=== PATIENT | male | born 1955 | race Caucasian/White ===

== ENCOUNTER 2020-04-15 10:08 | Inpatient (IN) ==
[2020-04-15] MEDS ORDERED: cefTRIAXone 1,000 MG in SODIUM CHLORIDE 0.9% 100 ML IV STA (10:35)
[2020-04-15] MEDS ORDERED: ALBUTEROL/IPRATROPIUM 3 ML NEB RESP TX STA ×2 (10:41)
[2020-04-15 10:53] LABS: Basophils % 0.3 % (0.0-0.8); Eosinophils # 0.1 10*3/uL (0.0-0.87); Eosinophils % 1.3 % (0.00-10.9); Hematocrit 50.6 VOL% (42.0-52.0); Hemoglobin 17.7 GM/DL (14.0-18.0); Immature Granulocytes % 0.5 %; Immature Granulocytes Absolute 0.05 #; Lymphocytes # 1.6 10*3/uL (1.4-4.0); Lymphocytes % 15.4 % (21.2-54.2); Mean Corpuscular Volume 98.3 FL (87-102); Mean Platelet Volume 10.9 FL (9.6-12.0); Monocytes % 6.8 % (1.7-12.7); Neutrophils % 75.7 % (38.7-73.9); Platelet Count 208 T/CUMM (130-400); Red Blood Count 5.15 MC/CUMM (3.8-5.5); Red Cell Distribution Width 12.3 % (9.3-17.3); White Blood Count 10.6 T/CUMM (4-12)
[2020-04-15 11:01] LABS: ABG Base Excess -0.5 MMOL/L (-2.5-2.5); ABG HCO3 23.6 MMOL/L (20-26); ABG Oxygen Saturation 85.1 % (95-100); ABG PCO2 39.1 MM HG (35-48); ABG PH 7.398 (7.35-7.45); ABG PO2 51.7 MM HG (80-95); ABG TCO2 19.8 MMOL/L (23-27)
[2020-04-15] MEDS ORDERED: hydrALAZINE 20 MG/1 ML VIAL ONE (11:07)
[2020-04-15 11:12] LABS: Albumin 3.5 G/DL (3.4-5.0); Bilirubin,Total 0.5 MG/DL (0.2-1.0); Calcium 8.7 MG/DL (8.5-10.1); Osmolality,Calculated 283.1 MOS/KG (273-304); Total Protein 7.2 G/DL (6.4-8.3)
[2020-04-15] MEDS ORDERED: SODIUM CHLORIDE 0.9% 500 ML IV STA (11:16)
[2020-04-15] MEDS ORDERED: hydrALAZINE 20 MG/1 ML VIAL IV STA (11:16)
[2020-04-15] MEDS ORDERED: ENOXAPARIN 30 MG/0.3 ML SYRINGE SUBCUT STA (11:24)
[2020-04-15 11:41] LABS: Apearance,Urine CLEAR (Clear); Bilirubin,Urine Negative (Negative); Blood, Urine Small mg/dL (Negative); Glucose,Urine (UA) Negative (Negative); Ketones,Urine Negative (Negative); Mucus,Urine Occasional /LPF (Occasional); Nitrite,Urine Negative (Negative); Protein,Urine >=500 MG/DL; RBC,Urine 2 /HPF (0-4); Urine Color Yellow (Yellow); Urine Specific Gravity 1.013 (1.001-1.035); Urine Urobilinogen < 2.0 EU/DL (0.2-1.0); WBC,Urine 3 /HPF (0-6)
[2020-04-15] MEDS ORDERED: FUROSEMIDE 40 MG/4 ML VIAL ONE (11:48)
[2020-04-15] MEDS ORDERED: NITROGLYCERIN SL 0.4 MG TABLET SL ONE (11:48)
[2020-04-15] MEDS ORDERED: FUROSEMIDE 40 MG/4 ML VIAL IV STA (11:48)
[2020-04-15] MEDS ORDERED: NITROGLYCERIN SL 0.4 MG TABLET SL STA (11:48)
[2020-04-15] MEDS ORDERED: HYDROmorphone 2 MG/1 ML VIAL ONE (13:01)
[2020-04-15] MEDS ORDERED: LIDOCAINE 1% 20 ML VIAL ONE (13:01)
[2020-04-15] MEDS ORDERED: MIDAZOLAM 2 MG/2 ML VIAL ONE (13:01)
[2020-04-15] MEDS ORDERED: TIROFIBAN 5,000 MCG/100 ML PREMIX IV ONE ×2 (13:35→13:59)
[2020-04-15] MEDS ORDERED: NITROGLYCERIN DRIP 50 MG/250 ML BOTTLE IV ONE (13:38)
[2020-04-15] MEDS ORDERED: TIROFIBAN 5,000 MCG/100 ML PREMIX IV SCH (13:41)
[2020-04-15] MEDS ORDERED: NITROGLYCERIN DRIP 50 MG/250 ML BOTTLE IV PRN (13:42)
[2020-04-15] MEDS ORDERED: TICAGRELOR 90 MG TABLET ONE (14:20)
[2020-04-15] MEDS ORDERED: ACETAMINOPHEN 325 MG TABLET PO PRN (14:24)
[2020-04-15] MEDS ORDERED: ASPIRIN 325 MG TABLET ONE (14:27)
[2020-04-15] MEDS: ROSUVASTATIN 20 MG TABLET PO SCH (15:35)
[2020-04-15] MEDS ORDERED: LABETALOL 20 MG/4 ML SYRINGE IV ONE (15:51)
[2020-04-15] MEDS: amLODIPine 2.5 MG TABLET PO SCH ×2 (16:02→22:56)
[2020-04-15 16:18] LABS: Troponin I 1.1 NG/ML (0.00-0.045)
[2020-04-15] MEDS: FUROSEMIDE 40 MG/4 ML VIAL IV SCH (16:23)
[2020-04-15] MEDS ORDERED: ONDANSETRON 4 MG/2 ML VIAL IV ONE (16:34)
[2020-04-15] MEDS ORDERED: ONDANSETRON 4 MG/2 ML VIAL ONE (16:34)
[2020-04-15 16:38] LABS: Ferritin 163.5 ng/ml (26-388)
[2020-04-15] MEDS ORDERED: PROMETHAZINE 25 MG/1 ML VIAL ONE (17:00)
[2020-04-15] MEDS ORDERED: PROMETHAZINE 25 MG/1 ML VIAL IM PRN (17:00)
[2020-04-15] MEDS ORDERED: hydrALAZINE 20 MG/1 ML VIAL IV PRN (17:19)
[2020-04-15] MEDS: METOCLOPRAMIDE 10 MG/2 ML VIAL IV SCH (18:16)
[2020-04-15] MEDS: ALBUTEROL/IPRATROPIUM 3 ML NEB RESP TX SCH ×2 (19:30→23:15)
[2020-04-15] MEDS: ONDANSETRON 4 MG/2 ML VIAL IV PRN (20:03)
[2020-04-15] MEDS: carvediloL 3.125 MG TABLET PO SCH (21:51)
[2020-04-15] MEDS: TICAGRELOR 90 MG TABLET PO SCH (21:51)
[2020-04-15] MEDS: PREGABALIN 75 MG CAPSULE PO SCH (21:53)
[2020-04-16] MEDS: METOCLOPRAMIDE 10 MG/2 ML VIAL IV SCH ×4 (01:28→17:18)
[2020-04-16] MEDS: ALBUTEROL/IPRATROPIUM 3 ML NEB RESP TX SCH ×6 (03:00→23:27)
[2020-04-16 04:52] LABS: Basophils % 0.2 % (0.0-0.8); Eosinophils # 1.3 10*3/uL (0.0-0.87); Eosinophils % 6.9 % (0.00-10.9); Hematocrit 49.2 VOL% (42.0-52.0); Hemoglobin 17.6 GM/DL (14.0-18.0); Immature Granulocytes % 0.6 %; Immature Granulocytes Absolute 0.12 #; Lymphocytes # 1.7 10*3/uL (1.4-4.0); Lymphocytes % 8.9 % (21.2-54.2); Mean Corpuscular HGB Conc 35.8 GM/DL (32-36); Mean Corpuscular Volume 96.9 FL (87-102); Mean Platelet Volume 10.8 FL (9.6-12.0); Monocytes % 7.8 % (1.7-12.7); Neutrophils % 75.6 % (38.7-73.9); Platelet Count 244 T/CUMM (130-400); Red Blood Count 5.08 MC/CUMM (3.8-5.5); Red Cell Distribution Width 12.7 % (9.3-17.3); White Blood Count 18.6 T/CUMM (4-12)
[2020-04-16 05:20] LABS: Band Neutrophils 1 % (0-10); Lymphocytes 9 % (20-55); Platelet Estimate Adequate; Segmented Neutrophils 79 % (50-85); Total Cells Counted 100
[2020-04-16 05:23] LABS: CKMB % 2.6 %; Calcium 9.7 MG/DL (8.5-10.1); Osmolality,Calculated 283.7 MOS/KG (273-304)
[2020-04-16 05:27] LABS: Troponin I 5.83 NG/ML (0.00-0.045)
[2020-04-16] MEDS: amLODIPine 2.5 MG TABLET PO SCH ×2 (08:29→20:30)
[2020-04-16] MEDS: ROSUVASTATIN 20 MG TABLET PO SCH (08:29)
[2020-04-16] MEDS: TICAGRELOR 90 MG TABLET PO SCH ×2 (08:29→20:32)
[2020-04-16] MEDS: ASPIRIN EC 81 MG TABLET PO SCH (08:29)
[2020-04-16] MEDS: carvediloL 3.125 MG TABLET PO SCH ×2 (08:29→20:31)
[2020-04-16] MEDS: FUROSEMIDE 40 MG/4 ML VIAL IV SCH (08:30)
[2020-04-16] MEDS: PREGABALIN 75 MG CAPSULE PO SCH ×3 (08:34→20:31)
[2020-04-16] MEDS ORDERED: amLODIPine 5 MG TABLET PO ONE (09:03)
[2020-04-16] MEDS ORDERED: POTASSIUM CHLORIDE 20 MEQ TABLET PO ONE (09:03)
[2020-04-16] MEDS: VANCOMYCIN INJ 1,500 MG in SODIUM CHLORIDE 0.9% 500 ML IV SCH (09:34)
[2020-04-16] MEDS ORDERED: NITROGLYCERIN 2% OINT 1 INCH/GM PACK TOP ONE (10:22)
[2020-04-16] MEDS: hydrALAZINE 25 MG TABLET PO SCH ×3 (10:50→20:31)
[2020-04-16] MEDS: NITROGLYCERIN 2% OINT 1 INCH/GM PACK TOP SCH ×2 (11:28→17:18)
[2020-04-16] MEDS: ONDANSETRON 4 MG/2 ML VIAL IV PRN (13:42)
[2020-04-17] MEDS: NITROGLYCERIN 2% OINT 1 INCH/GM PACK TOP SCH ×2 (01:32→05:42)
[2020-04-17] MEDS: METOCLOPRAMIDE 10 MG/2 ML VIAL IV SCH ×4 (01:36→18:08)
[2020-04-17] MEDS: ALBUTEROL/IPRATROPIUM 3 ML NEB RESP TX SCH ×6 (02:50→23:35)
[2020-04-17] MEDS: VANCOMYCIN INJ 1,500 MG in SODIUM CHLORIDE 0.9% 500 ML IV SCH ×2 (04:51→21:43)
[2020-04-17 05:22] LABS: Calcium 9.1 MG/DL (8.5-10.1); Osmolality,Calculated 279.1 MOS/KG (273-304)
[2020-04-17] MEDS: PREGABALIN 75 MG CAPSULE PO SCH ×3 (08:07→20:00)
[2020-04-17] MEDS: carvediloL 3.125 MG TABLET PO SCH (08:08)
[2020-04-17] MEDS: hydrALAZINE 25 MG TABLET PO SCH ×3 (08:08→20:00)
[2020-04-17] MEDS: ASPIRIN EC 81 MG TABLET PO SCH (08:08)
[2020-04-17] MEDS: ROSUVASTATIN 20 MG TABLET PO SCH (08:09)
[2020-04-17] MEDS: TICAGRELOR 90 MG TABLET PO SCH ×2 (08:09→20:00)
[2020-04-17] MEDS: FUROSEMIDE 40 MG/4 ML VIAL IV SCH (08:10)
[2020-04-17] MEDS: amLODIPine 2.5 MG TABLET PO SCH (08:10)
[2020-04-17 08:50] LABS: Basophils % 0.2 % (0.0-0.8); Hematocrit 49.9 VOL% (42.0-52.0); Hemoglobin 17.2 GM/DL (14.0-18.0); Immature Granulocytes % 0.8 %; Immature Granulocytes Absolute 0.14 #; Lymphocytes # 1.5 10*3/uL (1.4-4.0); Lymphocytes % 8.1 % (21.2-54.2); Mean Corpuscular HGB Conc 34.5 GM/DL (32-36); Mean Corpuscular Volume 100.4 FL (87-102); Mean Platelet Volume 11.2 FL (9.6-12.0); Monocytes % 8.3 % (1.7-12.7); Neutrophils % 82.6 % (38.7-73.9); Platelet Count 213 T/CUMM (130-400); Red Blood Count 4.97 MC/CUMM (3.8-5.5); Red Cell Distribution Width 12.8 % (9.3-17.3); White Blood Count 18.5 T/CUMM (4-12)
[2020-04-17] MEDS: carvediloL 6.25 MG TABLET PO SCH ×2 (08:50→17:16)
[2020-04-17] MEDS: SACUBITRIL/VALSARTAN 49-51 MG TABLET PO SCH ×2 (08:51→20:00)
[2020-04-17] MEDS: amLODIPine 5 MG TABLET PO SCH ×2 (08:51→20:00)
[2020-04-17] MEDS: PIPERACILLIN/TAZOBACTAM 3,375 MG in SODIUM CHLORIDE 0.9% 100 ML IV SCH ×2 (08:53→17:17)
[2020-04-17] MEDS: traMADol 50 MG TABLET PO PRN (20:00)
[2020-04-18] MEDS: METOCLOPRAMIDE 10 MG/2 ML VIAL IV SCH ×4 (01:47→18:11)
[2020-04-18] MEDS: traMADol 50 MG TABLET PO PRN ×2 (01:49→21:20)
[2020-04-18] MEDS: PIPERACILLIN/TAZOBACTAM 3,375 MG in SODIUM CHLORIDE 0.9% 100 ML IV SCH ×3 (01:50→18:12)
[2020-04-18] MEDS: ALBUTEROL/IPRATROPIUM 3 ML NEB RESP TX SCH ×5 (03:05→19:14)
[2020-04-18 05:18] LABS: Basophils % 0.2 % (0.0-0.8); Eosinophils % 0.1 % (0.00-10.9); Hematocrit 44.8 VOL% (42.0-52.0); Hemoglobin 15.5 GM/DL (14.0-18.0); Immature Granulocytes % 0.6 %; Immature Granulocytes Absolute 0.07 #; Lymphocytes # 1.3 10*3/uL (1.4-4.0); Lymphocytes % 10.2 % (21.2-54.2); Mean Corpuscular HGB Conc 34.6 GM/DL (32-36); Mean Corpuscular Volume 98.7 FL (87-102); Monocytes % 10.8 % (1.7-12.7); Neutrophils % 78.1 % (38.7-73.9); Platelet Count 178 T/CUMM (130-400); Red Blood Count 4.54 MC/CUMM (3.8-5.5); Red Cell Distribution Width 12.6 % (9.3-17.3); White Blood Count 12.6 T/CUMM (4-12)
[2020-04-18 06:09] LABS: Albumin 2.9 G/DL (3.4-5.0); Calcium 8.6 MG/DL (8.5-10.1); Total Protein 6.6 G/DL (6.4-8.3)
[2020-04-18] MEDS ORDERED: DIAZEPAM 5 MG TABLET PO ONE (06:30)
[2020-04-18] MEDS ORDERED: diphenhydrAMINE CAP 50 MG CAPSULE PO ONE (06:30)
[2020-04-18] MEDS: POTASSIUM CHLORIDE 20 MEQ TABLET PO PRN ×2 (08:23→09:23)
[2020-04-18] MEDS: ROSUVASTATIN 20 MG TABLET PO SCH (09:20)
[2020-04-18] MEDS: FUROSEMIDE 40 MG/4 ML VIAL IV SCH (09:20)
[2020-04-18] MEDS: PREGABALIN 75 MG CAPSULE PO SCH ×3 (09:20→21:15)
[2020-04-18] MEDS: carvediloL 6.25 MG TABLET PO SCH ×2 (09:22→18:11)
[2020-04-18] MEDS: SACUBITRIL/VALSARTAN 49-51 MG TABLET PO SCH ×2 (09:22→21:14)
[2020-04-18] MEDS: TICAGRELOR 90 MG TABLET PO SCH ×2 (09:22→21:15)
[2020-04-18] MEDS: amLODIPine 5 MG TABLET PO SCH ×2 (09:22→21:15)
[2020-04-18] MEDS: ASPIRIN EC 81 MG TABLET PO SCH (09:22)
[2020-04-18] MEDS: hydrALAZINE 25 MG TABLET PO SCH ×3 (09:23→21:15)
[2020-04-18] MEDS ORDERED: HEPARIN/NACL 0.9% 2 UNITS/ML 1,000 ML IV ONE (10:33)
[2020-04-18] MEDS ORDERED: LIDOCAINE 1% 20 ML VIAL ONE (10:33)
[2020-04-18] MEDS ORDERED: NITROGLYCERIN DRIP 50 MG/250 ML BOTTLE IV ONE (10:58)
[2020-04-18] MEDS ORDERED: VERAPAMIL 5 MG/2 ML VIAL ONE (10:58)
[2020-04-18] MEDS ORDERED: MIDAZOLAM 2 MG/2 ML VIAL ONE (11:08)
[2020-04-18] MEDS ORDERED: HYDROmorphone 2 MG/1 ML VIAL ONE (11:08)
[2020-04-18] MEDS ORDERED: ENOXAPARIN 60 MG/0.6 ML SYRINGE ONE (11:20)
[2020-04-18] MEDS ORDERED: ENOXAPARIN 30 MG/0.3 ML SYRINGE ONE (11:20)
[2020-04-18] MEDS: VANCOMYCIN INJ 1,500 MG in SODIUM CHLORIDE 0.9% 500 ML IV SCH (15:19)
[2020-04-18] MEDS ORDERED: SODIUM CHLORIDE 0.45% 1,000 ML IV SCH (16:00)
[2020-04-18] MEDS ORDERED: ROSUVASTATIN 20 MG TABLET PO SCH (21:00)
[2020-04-19] MEDS: METOCLOPRAMIDE 10 MG/2 ML VIAL IV SCH ×2 (00:02→06:22)
[2020-04-19] MEDS: ALBUTEROL/IPRATROPIUM 3 ML NEB RESP TX SCH ×4 (00:15→10:36)
[2020-04-19] MEDS: PIPERACILLIN/TAZOBACTAM 3,375 MG in SODIUM CHLORIDE 0.9% 100 ML IV SCH (02:08)
[2020-04-19] MEDS ORDERED: VANCOMYCIN INJ 1,500 MG in SODIUM CHLORIDE 0.9% 500 ML IV SCH (03:00)
[2020-04-19 05:38] LABS: Basophils % 0.3 % (0.0-0.8); Eosinophils # 0.1 10*3/uL (0.0-0.87); Eosinophils % 0.8 % (0.00-10.9); Hematocrit 42.4 VOL% (42.0-52.0); Hemoglobin 14.3 GM/DL (14.0-18.0); Immature Granulocytes % 0.6 %; Immature Granulocytes Absolute 0.07 #; Lymphocytes # 1.5 10*3/uL (1.4-4.0); Lymphocytes % 14.3 % (21.2-54.2); Mean Corpuscular HGB Conc 33.7 GM/DL (32-36); Mean Platelet Volume 10.9 FL (9.6-12.0); Monocytes % 13.1 % (1.7-12.7); Neutrophils % 70.9 % (38.7-73.9); Platelet Count 166 T/CUMM (130-400); Red Cell Distribution Width 12.8 % (9.3-17.3); White Blood Count 10.8 T/CUMM (4-12)
[2020-04-19 06:15] LABS: Calcium 8.3 MG/DL (8.5-10.1); Osmolality,Calculated 276.8 MOS/KG (273-304)
[2020-04-19 06:17] LABS: Calcium 8.2 MG/DL (8.5-10.1)
[2020-04-19 08:35] VITALS: BP 144/88
[2020-04-19] MEDS ORDERED: FUROSEMIDE 40 MG TABLET PO SCH (09:00)
[2020-04-19] MEDS: SACUBITRIL/VALSARTAN 49-51 MG TABLET PO SCH (09:11)
[2020-04-19] MEDS: carvediloL 6.25 MG TABLET PO SCH (09:12)
[2020-04-19] MEDS: TICAGRELOR 90 MG TABLET PO SCH (09:12)
[2020-04-19] MEDS: hydrALAZINE 25 MG TABLET PO SCH (09:12)
[2020-04-19] MEDS: amLODIPine 5 MG TABLET PO SCH (09:12)
[2020-04-19] MEDS: PREGABALIN 75 MG CAPSULE PO SCH (09:12)
[2020-04-19] MEDS: ASPIRIN EC 81 MG TABLET PO SCH (09:12)
== END 2020-04-19 11:23 | disposition home or self-care (01) | DRG 246 ==
LOC: N.ED 10:08 → N.EDINP 12:58 → N.ICU 14:53 → N.TELES 04-17 14:20
PROVIDERS: ADMIT Internal Medicine Cardiovascular Disease; ATTEND Internal Medicine Cardiovascular Disease
PROC: CLCCHCL (ICD-10-PCS; 2020-04-15 13:45)